=== PATIENT | female | born 1995 | race Two or more races ===

== ENCOUNTER 2023-02-11 08:50 | Inpatient (IN) | payer OTHER ==
[~2023-02-11] VITALS: Ht 157.5 cm; Wt 59.0 kg
[~2023-02-11 08:50] MED LIST: CITRACAL + D M1 EACH PO; TAPAZOLE5 MG PO; TENORMIN25 MG PO
== END 2023-02-12 11:28 | disposition home or self-care (01) | DRG 627 ==
LOC: CIR.AMB 08:50 → SURG 10:30 → SURH 18:52
PROVIDERS: ADMIT Otolaryngology; ATTEND Otolaryngology
PROC: 0GTK0ZZ Resection of Thyroid Gland, Open Approach (ICD-10-PCS; principal; 2023-02-11 10:30)
DX: E05.00 Thyrotoxicosis with diffuse goiter without thyrotoxic crisis or storm (principal); Z20.822 Contact with and (suspected) exposure to COVID-19

== ENCOUNTER 2023-03-19 07:33 | Outpatient (CLI) | payer OTHER | END 2023-03-19 07:37 | disposition home or self-care (01) | LOC: LAB 07:33 | PROVIDERS: ATTEND Otolaryngology | DX: E05.00 Thyrotoxicosis with diffuse goiter without thyrotoxic crisis or storm (principal); Z91.018 Allergy to other foods ==

== ENCOUNTER → 2023-04-03 07:31 | Outpatient (CLI) | payer OTHER | END | disposition home or self-care (01) | LOC: LAB 07:31 | DX: N91.0 Primary amenorrhea (principal) ==

== ENCOUNTER 2023-04-03 07:54 | Outpatient (CLI) | payer OTHER | END 2023-04-03 07:59 | disposition home or self-care (01) | LOC: SONOGRAMA 07:54 | DX: R10.2 Pelvic and perineal pain (principal); N91.0 Primary amenorrhea ==

== ENCOUNTER 2023-04-20 23:02 | Emergency (ER) | payer OTHER ==
[~2023-04-20] VITALS: Ht 157.5 cm; Wt 63.5 kg
[2023-04-20] MEDS ORDERED: SYNTHROID50 MCG (23:31)
== END 2023-04-20 23:33 | disposition home or self-care (01) ==
LOC: ER 23:02
DX: R10.2 Pelvic and perineal pain (principal); Z91.012 Allergy to eggs